=== PATIENT | female | born 1995 | race Caucasian/White ===

== ENCOUNTER 2024-03-23 16:42 | Emergency (ER) | payer OTHER ==
[~2024-03-23] VITALS: Ht 157.5 cm; Wt 89.9 kg
[2024-03-23] MEDS: BOOSTRIX VACCINE (TETANUS/DIPHTH/ACEL. PERTUSSIS) 0.5ML SYR IM ONE (18:52)
[2024-03-23] MEDS: LIDOCAINE 1% MDV 20ML VIAL SC ONE (19:35)
[2024-03-23] MEDS ORDERED: CIPR-249 PO (20:52)
[2024-03-23 21:04] VITALS: BP 146/79; TEMP 98.1; O2SAT 99
== END 2024-03-23 21:07 | disposition home or self-care (01) ==
LOC: M ED 16:42
DX: S60.851A Superficial foreign body of right wrist, initial encounter (principal); Y92.019 Unspecified place in single-family (private) house as the place of occurrence of the external cause; Y93.9 Activity, unspecified; Y99.9 Unspecified external cause status; W45.8XXA Other foreign body or object entering through skin, initial encounter; Z79.2 Long term (current) use of antibiotics; Z23 Encounter for immunization